=== PATIENT | male | born 1990 | race Two or more races ===

== ENCOUNTER 2016-11-18 21:16 | Emergency (ER) | payer MEDICAID ==
[~2016-11-18 21:16] MED LIST: ACCUPRIL; ASPIRIN; LOVASTATIN
== END 2016-11-18 22:30 | disposition left against medical advice (07) ==
LOC: ER 21:16
DX: M54.9 Dorsalgia, unspecified (principal); Z53.21 Procedure and treatment not carried out due to patient leaving prior to being seen by health care provider

== ENCOUNTER 2017-07-04 12:01 | Emergency (ER) | payer MEDICAID ==
[~2017-07-04] VITALS: Ht 162.6 cm; Wt 80.0 kg
[2017-07-04 12:25] VITALS: BP 131/74
[2017-07-04] MEDS ORDERED: METF10002 PO (12:29)
[2017-07-04] MEDS ORDERED: GLIP10TA10 PO (12:29)
[2017-07-04] MEDS ORDERED: LISI-604 PO (12:29)
== END 2017-07-04 14:38 | disposition home or self-care (01) ==
LOC: ER 12:46
DX: H10.9 Unspecified conjunctivitis (principal); E11.9 Type 2 diabetes mellitus without complications; I10 Essential (primary) hypertension; Z79.84 Long term (current) use of oral hypoglycemic drugs
CPT/HCPCS: 99283

== ENCOUNTER 2019-01-04 15:29 | Emergency (ER) | payer MEDICAID ==
[~2019-01-04] VITALS: Ht 154.9 cm; Wt 85.0 kg
[~2019-01-04 15:29] MED LIST changes: -ACCUPRIL; -ASPIRIN; +GLIP10TA10 PO; +LISI-604 PO; -LOVASTATIN; +METF-416 PO
[2019-01-04] MEDS ORDERED: KETOROLAC 30MG/ML VIAL IV ONE (18:15)
[2019-01-04] MEDS ORDERED: HYDROCODONE/ACETAMINOPHEN 5/325MG TABLET PO ONE (20:00)
[2019-01-04] MEDS ORDERED: ONDANSETRON HCL 4MG/2ML INJ IV ONE (20:00)
[2019-01-04 22:30] VITALS: BP 125/77
== END 2019-01-04 22:31 | disposition home or self-care (01) ==
LOC: ER 18:52
DX: S49.92XA Unspecified injury of left shoulder and upper arm, initial encounter (principal); R07.89 Other chest pain; E11.9 Type 2 diabetes mellitus without complications; I10 Essential (primary) hypertension; Z79.84 Long term (current) use of oral hypoglycemic drugs; V43.52XA Car driver injured in collision with other type car in traffic accident, initial encounter; Y93.89 Activity, other specified; Y92.488 Other paved roadways as the place of occurrence of the external cause
CPT/HCPCS: 71045; 73030; 73080; 73090; 73110; 93005; 96374; 96375; 99284; J1885; J2405

== ENCOUNTER 2020-07-10 11:14 | Inpatient (IN) | payer MEDICAID, OTHER ==
[~2020-07-10] VITALS: Ht 154.9 cm; Wt 73.6 kg
[~2020-07-10 11:14] MED LIST changes: -LISI-604 PO; +LISI20TA31 PO
[2020-07-10] MEDS ORDERED: MORPHINE SULFATE 4 MG/ML CPJ (NOT FOR IM USE) IV STA (11:42)
[2020-07-10] MEDS ORDERED: ONDANSETRON HCL 4MG/2ML INJ IV STA (11:42)
[2020-07-10] MEDS ORDERED: ASPIRIN 81MG TABLET PO ONE (11:45)
[2020-07-10] MEDS ORDERED: NITROGLYCERIN OINT 1GM/INCH UDPKT TD ONE (11:45)
[2020-07-10 12:06] LABS: BASOPHILS % 0.1 % (0.0-2.0); EOSINOPHILS % 1.3 % (0.0-5.0); HEMATOCRIT. 44.4 % (42.0-52.0); HEMOGLOBIN. 15.1 g/dL (14.0-18.0); LYMPHOCYTES % 18.3 % (20.0-50.0); MEAN CORPUSCULAR HEMOGLOBIN 28.4 pg (28.0-32.0); MEAN CORPUSCULAR VOLUME 83.8 fL (80.0-94.0); MEAN PLATELET VOLUME 8.8 fl (7.4-10.4); MONOCYTES % 4.3 % (2.0-8.0); PLATELET 299 x1000/uL (130-400); RED BLOOD CELL COUNT 5.31 mill/uL (4.7-6.1); RED CELL DISTRIBUTION WIDTH 14.6 % (11.6-14.6)
[2020-07-10 12:13] LABS: CHLORIDE 98 mEq/L (98-107)
[2020-07-10 12:17] LABS: ETHANOL BLOOD < 10 mg/dL
[2020-07-10] MEDS ORDERED: INSULIN REGULAR (HUMULIN R) 300UNITS/3ML VIAL IV ONE (12:30)
[2020-07-10] MEDS ORDERED: CLONIDINE 0.1MG TABLET PO PRN (14:00)
[2020-07-10] MEDS ORDERED: ACETAMINOPHEN 325MG TABLET PO PRN (14:00)
[2020-07-10] MEDS ORDERED: DOCUSATE SODIUM 100MG CAPSULE PO PRN (14:00)
[2020-07-10] MEDS ORDERED: ONDANSETRON HCL 4MG/2ML INJ IV PRN (14:00)
[2020-07-10] MEDS ORDERED: HYDROCODONE/ACETAMINOPHEN 5/325MG TABLET PO PRN (14:00)
[2020-07-10] MEDS ORDERED: IPRATROPIUM/ALBUTEROL 0.5-3(2.5)MG/3ML NEB HHN PRN (14:00)
[2020-07-10] MEDS ORDERED: LORAZEPAM 0.5MG TABLET PO PRN (14:00)
[2020-07-10] MEDS ORDERED: NITROGLYCERIN 0.4MG TABLET SL SL PRN (14:00)
[2020-07-10 14:20] LABS: METHADONE URINE SCREEN NEGATIVE (NEGATIVE); OPIATES URINE SCREEN NEGATIVE (NEGATIVE)
[2020-07-10 14:21] LABS: *AMPHETAMINES SCREEN URINE NEGATIVE (NEGATIVE); *BARBITURATES SCREEN URINE NEGATIVE (NEGATIVE); *BENZODIAZEPINES SCREEN URINE NEGATIVE (NEGATIVE); *COCAINE SCREEN URINE NEGATIVE (NEGATIVE); CANNABINOID URINE SCREEN NEGATIVE (NEGATIVE); PHENCYCLIDINE URINE SCREEN NEGATIVE (NEGATIVE)
[2020-07-10] MEDS ORDERED: AMLODIPINE 5MG TABLET PO SCH (14:30)
[2020-07-10] MEDS: GABAPENTIN 300MG CAPSULE PO SCH ×2 (14:39→21:52)
[2020-07-10] MEDS ORDERED: REGADENOSON 0.4 MG/5 ML IV SCH (15:15)
[2020-07-10 16:04] VITALS: BP 124/73
[2020-07-10] MEDS ORDERED: LANTUS (16:11)
[2020-07-10] MEDS: CLONIDINE 0.1MG TABLET PO SCH ×2 (17:51→21:52)
[2020-07-10 18:18] VITALS: BP 124/73
[2020-07-10] MEDS ORDERED: DEXTROSE 50% WATER 50ML SYRINGE IV PRN (18:45)
[2020-07-10] MEDS: INSULIN LISPRO 100 UNITS/ML SUBCUT SCH ×2 (18:49→20:46)
[2020-07-10] MEDS: BLOOD SUGAR DIAGNOSTIC STRIP TEST SCH ×2 (19:40→20:38)
[2020-07-10 20:00] VITALS: BP 114/73
[2020-07-10] MEDS: AMLODIPINE 5MG TABLET PO SCH (20:43)
[2020-07-10] MEDS ORDERED: ATORVASTATIN CALCIUM 20MG TABLET PO SCH (21:00)
[2020-07-11] VITALS: BP 111/64
[2020-07-11 04:00] VITALS: BP 99/61
[2020-07-11] MEDS: CLONIDINE 0.1MG TABLET PO SCH ×2 (05:14→13:12)
[2020-07-11] MEDS: GABAPENTIN 300MG CAPSULE PO SCH ×2 (05:14→13:40)
[2020-07-11] MEDS: BLOOD SUGAR DIAGNOSTIC STRIP TEST SCH ×2 (06:09→11:53)
[2020-07-11] MEDS: INSULIN LISPRO 100 UNITS/ML SUBCUT SCH ×2 (07:15→13:08)
[2020-07-11] MEDS ORDERED: ASPIRIN 81MG EC TABLET PO SCH (08:00)
[2020-07-11 08:12] VITALS: BP 101/68
[2020-07-11] MEDS: AMLODIPINE 5MG TABLET PO SCH (08:57)
[2020-07-11] MEDS ORDERED: REGADENOSON 0.4 MG/5 ML IV ONE (09:55)
[2020-07-11 12:00] VITALS: BP 105/67
[2020-07-11] MEDS ORDERED: GEMF600T MT (12:12)
[2020-07-11] MEDS ORDERED: ASPI-1406 PO (12:12)
[2020-07-11] MEDS ORDERED: AMLO10TA80 MT (12:12)
[2020-07-11] MEDS ORDERED: GABA-529 MT (12:12)
[2020-07-11] MEDS ORDERED: ATOR20TA65 MT (12:12)
[2020-07-11] MEDS ORDERED: INSU100V37 SQ (12:12)
[2020-07-11] MEDS ORDERED: INSU100I28 SQ ×2 (12:12)
[2020-07-11 13:10] LABS: BASOPHILS % 0.2 % (0.0-2.0); HEMATOCRIT. 39.5 % (42.0-52.0); LYMPHOCYTES % 18.1 % (20.0-50.0); MEAN CORPUSCULAR HEMOGLOBIN 27.6 pg (28.0-32.0); MEAN CORPUSCULAR VOLUME 83.8 fL (80.0-94.0); MEAN PLATELET VOLUME 8.9 fl (7.4-10.4); MONOCYTES % 4.4 % (2.0-8.0); NEUTROPHILS % 76.3 % (40.0-76.0); PLATELET 262 x1000/uL (130-400); RED BLOOD CELL COUNT 4.71 mill/uL (4.7-6.1); RED CELL DISTRIBUTION WIDTH 14.7 % (11.6-14.6)
[2020-07-11 13:21] LABS: CHLORIDE 100 mEq/L (98-107)
[2020-07-11 13:44] VITALS: BP 105/67
== END 2020-07-11 16:23 | disposition home or self-care (01) | DRG 203 ==
LOC: ER 11:14 → 5WST 13:32 → EDBEDREQTM 13:49 → EDBEDREQ 13:49 → ENRESERV 14:18
PROVIDERS: ADMIT Internal Medicine; ATTEND Internal Medicine
DX: M94.0 Chondrocostal junction syndrome [Tietze] (principal); E78.1 Pure hyperglyceridemia; I10 Essential (primary) hypertension; F17.210 Nicotine dependence, cigarettes, uncomplicated; E78.5 Hyperlipidemia, unspecified; Z20.822 Contact with and (suspected) exposure to COVID-19; E10.40 Type 1 diabetes mellitus with diabetic neuropathy, unspecified; E10.65 Type 1 diabetes mellitus with hyperglycemia; Z82.49 Family history of ischemic heart disease and other diseases of the circulatory system; Z79.899 Other long term (current) drug therapy; Z79.4 Long term (current) use of insulin; Z91.19 Patient's noncompliance with other medical treatment and regimen; Z91.14 Patient's other noncompliance with medication regimen; E66.9 Obesity, unspecified; Z68.30 Body mass index [BMI] 30.0-30.9, adult; Z71.3 Dietary counseling and surveillance; E87.1 Hypo-osmolality and hyponatremia
CPT/HCPCS: 36415; 71045; 78452; 80048; 80053; 80061; 80305; 80320; 82962; 83036; 83880; 84443; 84484; 85025; 85379; 87426; 93005; 93017; 93306; 99291; A9500; J1815; J2270; J2405; J2785; G0480

== ENCOUNTER 2020-12-17 09:14 | Emergency (ER) | payer MEDICAID ==
[~2020-12-17] VITALS: Ht 154.9 cm; Wt 77.0 kg
[~2020-12-17 09:14] MED LIST changes: +AMLO10TA80 MT; +ASPI-1406 PO; +ATOR20TA65 MT; +GABA-529 MT; +GEMF600T MT; -GLIP10TA10 PO; +INSU100I28 SQ; +INSU100V37 SQ; -LISI20TA31 PO; -METF-416 PO
[2020-12-17] MEDS ORDERED: ERYT1OIN6 EACHEYE (09:53)
[2020-12-17 10:10] VITALS: BP 131/71
== END 2020-12-17 10:12 | disposition home or self-care (01) ==
LOC: ER 09:14
DX: H57.11 Ocular pain, right eye (principal); E11.9 Type 2 diabetes mellitus without complications; I10 Essential (primary) hypertension; Z79.899 Other long term (current) drug therapy; Z79.82 Long term (current) use of aspirin
CPT/HCPCS: 99283

== ENCOUNTER 2021-05-05 16:11 | Emergency (ER) | payer MEDICAID ==
[~2021-05-05] VITALS: Ht 160 cm; Wt 73.0 kg
[~2021-05-05 16:11] MED LIST changes: +ERYT1OIN6 EACHEYE
[2021-05-05] MEDS ORDERED: INSULIN REGULAR (HUMULIN R) UD 100 UNITS/ML SYR SUBCUT ONE (17:00)
[2021-05-05] MEDS ORDERED: SODIUM CHLORIDE 0.9% 1,000 ML IV ONE (17:00)
[2021-05-05] MEDS ORDERED: ONDANSETRON HCL 4MG/2ML INJ IV STA (17:00)
[2021-05-05] MEDS ORDERED: INSULIN REGULAR (HUMULIN R) 300UNITS/3ML VIAL SUBCUT NR (17:11)
[2021-05-05 18:30] LABS: *BENZODIAZEPINES SCREEN URINE NEGATIVE (NEGATIVE); *COCAINE SCREEN URINE NEGATIVE (NEGATIVE); METHADONE URINE SCREEN NEGATIVE (NEGATIVE)
[2021-05-05 18:33] LABS: *AMPHETAMINES SCREEN URINE NEGATIVE (NEGATIVE); *BARBITURATES SCREEN URINE NEGATIVE (NEGATIVE); CANNABINOID URINE SCREEN NEGATIVE (NEGATIVE); OPIATES URINE SCREEN NEGATIVE (NEGATIVE); PHENCYCLIDINE URINE SCREEN NEGATIVE (NEGATIVE)
[2021-05-05 18:39] LABS: BASOPHILS % 0.3 % (0.0-2.0); EOSINOPHILS % 1.5 % (0.0-5.0); HEMATOCRIT. 33.5 % (42.0-52.0); HEMOGLOBIN. 11.4 g/dL (14.0-18.0); LYMPHOCYTES % 12.5 % (20.0-50.0); MEAN CORPUSCULAR HEMOGLOBIN 27.5 pg (28.0-32.0); MEAN CORPUSCULAR VOLUME 80.9 fL (80.0-94.0); MEAN PLATELET VOLUME 8.6 fl (7.4-10.4); MONOCYTES % 4.4 % (2.0-8.0); NEUTROPHILS % 81.3 % (40.0-76.0); PLATELET 282 x1000/uL (130-400); RED BLOOD CELL COUNT 4.14 mill/uL (4.7-6.1); RED CELL DISTRIBUTION WIDTH 13.3 % (11.6-14.6)
[2021-05-05 18:47] LABS: CHLORIDE 106 mEq/L (98-107)
[2021-05-05 18:52] LABS: ETHANOL BLOOD 136 mg/dL
[2021-05-05 18:56] LABS: BETA HYDROXYBUTYRATE 0.2 mMol/L (0.0-0.3)
[2021-05-05] MEDS ORDERED: METF-414 MT (19:27)
[2021-05-05 20:24] VITALS: BP 126/79
== END 2021-05-05 20:25 | disposition home or self-care (01) ==
LOC: ER 16:11
DX: F10.129 Alcohol abuse with intoxication, unspecified (principal); E11.65 Type 2 diabetes mellitus with hyperglycemia; I11.9 Hypertensive heart disease without heart failure; J44.9 Chronic obstructive pulmonary disease, unspecified; I48.91 Unspecified atrial fibrillation; F17.210 Nicotine dependence, cigarettes, uncomplicated; Y90.6 Blood alcohol level of 120-199 mg/100 ml; Z79.01 Long term (current) use of anticoagulants; Z79.82 Long term (current) use of aspirin; Z79.4 Long term (current) use of insulin
CPT/HCPCS: 36415; 71045; 80053; 80305; 80320; 82010; 82962; 85025; 93005; 96361; 96372; 96374; 99285; J1815; J2405; J7030; G0480

== ENCOUNTER 2023-06-25 18:12 | Emergency (ER) | payer MEDICAID ==
[~2023-06-25] VITALS: Ht 172.7 cm; Wt 79.0 kg
[~2023-06-25 18:12] MED LIST changes: -INSU100V37 SQ; +INSU100V43 SQ; +METF-414 MT
[2023-06-25 18:15] VITALS: BP 119/51; PULSE 107; RESP 20; TEMP 98.4; O2SAT 100
[2023-06-25 20:03] LABS: BASOPHILS % 0.4 % (0.0-2.0); EOSINOPHILS % 1.6 % (0.0-5.0); HEMATOCRIT. 34.3 % (42.0-52.0); HEMOGLOBIN. 11.4 g/dL (14.0-18.0); MEAN CORPUSCULAR HEMOGLOBIN 27.1 pg (28.0-32.0); MEAN CORPUSCULAR HGB CONC 33.3 g/dL (31.0-37.0); MEAN CORPUSCULAR VOLUME 81.5 fL (80.0-94.0); MEAN PLATELET VOLUME 8.4 fl (7.4-10.4); MONOCYTES % 4.4 % (2.0-8.0); NEUTROPHILS % 78.6 % (40.0-76.0); PLATELET 409 x1000/uL (130-400); WHITE BLOOD COUNT 11.2 x1000/uL (4.5-11.0)
[2023-06-25 20:17] LABS: ALANINE AMINOTRANSFERASE 16 IU/L (10-49); ALBUMIN 3.3 g/dL (3.2-4.8); ASPARTATE AMINOTRANSFERASE 15 IU/L (<34); BILIRUBIN TOTAL 0.3 mg/dL (0.1-1.0); CALCIUM 8.4 mg/dL (8.7-10.4); CARBON DIOXIDE 22 mEq/L (21-32); CHLORIDE 109 mEq/L (98-107); CREATININE 2.7 mg/dL (0.6-1.3); GLUCOSE 235 mg/dL (70-105); POTASSIUM 5.2 mEq/L (3.5-5.1); PROTEIN TOTAL 6.5 g/dL (6.0-8.3); SODIUM 137 mEq/L (136-145); UREA NITROGEN BLOOD 33 mg/dL (9-23)
[2023-06-25 20:26] LABS: ETHANOL BLOOD < 10 mg/dL (<10); TROPONIN I HIGH SENSITIVITY 72 ng/L (3.0-53)
[2023-06-25] MEDS ORDERED: ASPIRIN 81MG TABLET PO ONE (20:45)
[2023-06-25] MEDS ORDERED: CHLORDIAZEPOXIDE 25MG CAPSULE PO ONE (20:45)
[2023-06-25] MEDS ORDERED: SODIUM POLYSTYRENE SULFONATE 15 G/60 ML BOT PO ONE (23:00)
[2023-06-25] MEDS ORDERED: SODIUM CHLORIDE 0.9% 1,000 ML IV ONE (23:00)
== END 2023-06-26 04:59 | disposition left against medical advice (07) ==
LOC: ER 18:12 → EDBEDREQ 20:42 → EDBEDREQTM 23:05 → CANBEDREQ 06-26 04:46 → ER 06-26 04:59
DX: I21.3 ST elevation (STEMI) myocardial infarction of unspecified site (principal); I10 Essential (primary) hypertension; I48.91 Unspecified atrial fibrillation; N17.9 Acute kidney failure, unspecified; E87.5 Hyperkalemia; E78.00 Pure hypercholesterolemia, unspecified; E11.9 Type 2 diabetes mellitus without complications; Z79.899 Other long term (current) drug therapy; Z98.890 Other specified postprocedural states
CPT/HCPCS: 80053; 80320; 85025; 84484; 36415; 71045; 93005; 99291; J7030; G0480

== ENCOUNTER 2023-12-24 09:37 | Emergency (ER) | payer MEDICAID ==
[~2023-12-24] VITALS: Ht 165.1 cm; Wt 70.0 kg
[2023-12-24 09:53] VITALS: O2SAT 99
[2023-12-24] MEDS: TETRACAINE 0.5% OPHTH DROPS 4ML RIGHTEYE ONE (10:10)
[2023-12-24] MEDS: FLUORESCEIN SODIUM 1MG/STRIP RIGHTEYE ONE (10:10)
[2023-12-24 12:59] VITALS: BP 140/82; PULSE 88; RESP 18; TEMP 98.1
== END 2023-12-24 13:14 | disposition home or self-care (01) ==
LOC: ER 09:37
DX: H57.11 Ocular pain, right eye (principal); I10 Essential (primary) hypertension; E11.9 Type 2 diabetes mellitus without complications; E78.00 Pure hypercholesterolemia, unspecified; I51.9 Heart disease, unspecified; I48.91 Unspecified atrial fibrillation; Z79.899 Other long term (current) drug therapy; Z79.82 Long term (current) use of aspirin; Z98.890 Other specified postprocedural states
CPT/HCPCS: 65220; 99284